=== PATIENT | male | born 1990 | race Caucasian/White ===

== ENCOUNTER 2018-01-19 07:19 | Observation (INO) | payer OTHER ==
[~2018-01-19 07:19] MED LIST: CEFAZOLIN 1 GM INJ
[2018-01-19] MEDS ORDERED: ROPIVACAINE 0.5 % 30 ML VIAL (08:57)
[2018-01-19] MEDS ORDERED: PROPOFOL 20 ML (09:28)
[2018-01-19] MEDS ORDERED: ROCURONIUM 50 MG INJ ×2 (09:28→12:22)
[2018-01-19] MEDS ORDERED: ACETAMINOPHEN 1000MG/100ML IV 100 ML (09:28)
[2018-01-19] MEDS ORDERED: METOCLOPRAMIDE 10 MG INJ (09:29)
[2018-01-19] MEDS ORDERED: ONDANSETRON 4 MG INJ (09:29)
[2018-01-19] MEDS ORDERED: ROPIVACAINE 0.2% 20 ML VIAL (09:30)
[2018-01-19] MEDS ORDERED: MIDAZOLAM 1 MG/ML 2 ML INJ (09:31)
[2018-01-19] MEDS ORDERED: FENTAnyl 50 MCG/ML VIAL (09:38)
[2018-01-19] MEDS ORDERED: POVIDONE IODINE 10% 28.4 GM OINT (09:54)
[2018-01-19] MEDS: POLYMYXIN/BACITRACIN 1L IRRIG (10:12)
[2018-01-19] MEDS ORDERED: LABETALOL HCL 20MG INJ (10:14)
[2018-01-19] MEDS ORDERED: HYDROmorphONE 2 MG/ML SYG (10:19)
[2018-01-19] MEDS ORDERED: DIPHENHYDRAMINE 50 MG INJ IV (11:00)
[2018-01-19] MEDS ORDERED: MEPERIDINE 25 MG INJ IV (11:00)
[2018-01-19] MEDS ORDERED: OXYCODONE/ACETAMINOPHEN (5/325) TAB PO ×2 (11:00)
[2018-01-19] MEDS ORDERED: KETOROLAC 30 MG INJ IV (11:00)
[2018-01-19] MEDS ORDERED: HYDROmorphONE 1 MG/5 ML IV SYRINGE IV ×3 (11:00)
[2018-01-19] MEDS: ROPIVACAINE 0.5 % 30 ML VIAL (12:22)
[2018-01-19] MEDS ORDERED: NEOSTIGMINE 3 MG/3 ML SYRINGE (12:26)
[2018-01-19] MEDS ORDERED: GLYCOPYRROLATE 0.4 MG INJ (12:26)
[2018-01-19] MEDS: ONDANSETRON 4 MG INJ IV (15:36)
[2018-01-19] MEDS: ALBUTEROL 0.083% (NEB) 2.5 MG/3 ML AMP HHN (16:10)
[2018-01-19] MEDS: morphine 2 MG INJ IV (17:47)
[2018-01-20] MEDS ORDERED: ONDANSETRON 4 MG INJ IV ×2 (05:30)
[2018-01-20] MEDS ORDERED: DIPHENHYDRAMINE 25 MG CAP PO (05:30)
[2018-01-20] MEDS ORDERED: NACL 0.9% 3 ML SYG IV (05:30)
[2018-01-20] MEDS ORDERED: CEFAZOLIN 1 GM INJ IV (05:30)
[2018-01-20] MEDS: CEFAZOLIN 2 GM/50 ML (PMX) 50 ML IVPB ×3 (06:08→21:55)
[2018-01-20] MEDS ORDERED: HYDROCODONE/APAP (5/325) TAB PO (09:00)
[2018-01-20] MEDS ORDERED: ALBUTEROL 0.083% (NEB) 2.5 MG/3 ML AMP HHN (09:00)
[2018-01-20] MEDS: HYDROCODONE/APAP (10/325) TAB PO (09:08)
[2018-01-20 09:37] LABS: ADD MAN DIFF? NO
[2018-01-20 09:41] LABS: WHITE BLOOD COUNT 9.8 10^3/ul (4.8-10.8)
[2018-01-20 09:41] LABS: BASOPHILS % 0.4 % (0.0-2.0); EOSINOPHILS # 0.1 10^3/ul (0.0-0.5); EOSINOPHILS % 0.8 % (0.0-7.0); HEMATOCRIT 44.7 % (42.0-52.0); HEMOGLOBIN 14.7 g/dl (14.0-18.0); LYMPHOCYTES # 1.9 10^3/ul (0.8-2.9); MEAN CORPUSCULAR HEMOGLOBIN 27.4 pg (29.0-33.0); MEAN CORPUSCULAR HGB CONC 32.9 g/dl (32.0-37.0); MEAN CORPUSCULAR VOLUME 83.2 fl (82.0-101.0); MONOCYTES % 9.8 % (0.0-11.0); NEUTROPHIL # 6.9 10^3/ul (1.6-7.5); NEUTROPHILS % 69.6 % (39.0-77.0); PLATELET COUNT 242 10^3/UL (140-415); RED BLOOD COUNT 5.37 10^6/ul (4.70-6.10); RED CELL DISTRIBUTION WIDTH 13.6 % (11.5-14.5)
[2018-01-20 10:05] LABS: ALANINE AMINOTRANSFERASE 59 IU/L (13-69); ALBUMIN 3.7 g/dl (3.3-4.9); ALBUMIN/GLOBULIN RATIO 1.23; ALKALINE PHOSPHATASE 60 IU/L (42-121); ANION GAP 12 (8-16); ASPARTATE AMINO TRANSFERASE 24 IU/L (15-46); BILIRUBIN,INDIRECT 0.7 mg/dl (0-1.1); BILIRUBIN,TOTAL 0.7 mg/dl (0.2-1.3); BLOOD UREA NITROGEN 9 mg/dl (7-20); CALCIUM 8.7 mg/dl (8.4-10.2); CARBON DIOXIDE 27 mmol/L (21-31); CHLORIDE 105 mmol/L (97-110); CREATININE 0.72 mg/dl (0.61-1.24); GLUCOSE 103 mg/dl (70-220); MAGNESIUM 1.6 mg/dl (1.7-2.5); POTASSIUM 3.9 mmol/L (3.5-5.1); SODIUM 140 mmol/L (135-144); TOTAL PROTEIN 6.7 g/dl (6.1-8.1)
[2018-01-20] MEDS: OXYCODONE/ACETAMINOPHEN (10/325) TAB PO ×2 (10:09→18:28)
[2018-01-20 11:30] LABS: HEMOGLOBIN A1C 5.5 % (0-5.9)
[2018-01-20] MEDS: OXYCODONE/ACETAMINOPHEN (5/325) TAB PO ×3 (13:26→18:51)
[2018-01-21] MEDS: CEFAZOLIN 2 GM/50 ML (PMX) 50 ML IVPB ×3 (05:39→21:44)
[2018-01-21] MEDS: OXYCODONE/ACETAMINOPHEN (10/325) TAB PO ×2 (08:37→13:36)
[2018-01-21] MEDS: RIVAROXABAN 10 MG TABLET PO (17:40)
[2018-01-21] MEDS: MAGNESIUM OXIDE 400 MG TAB PO (17:40)
[2018-01-22] MEDS: OXYCODONE/ACETAMINOPHEN (10/325) TAB PO ×2 (11:08→18:35)
[2018-01-22] MEDS: RIVAROXABAN 10 MG TABLET PO (18:39)
[2018-01-23 05:41] LABS: ADD MAN DIFF? NO
[2018-01-23 05:43] LABS: BASOPHILS % 0.4 % (0.0-2.0); EOSINOPHILS # 0.5 10^3/ul (0.0-0.5); EOSINOPHILS % 6.7 % (0.0-7.0); HEMATOCRIT 44.9 % (42.0-52.0); HEMOGLOBIN 14.7 g/dl (14.0-18.0); LYMPHOCYTES % 25.9 % (15.0-51.0); MEAN CORPUSCULAR HEMOGLOBIN 27.5 pg (29.0-33.0); MEAN CORPUSCULAR HGB CONC 32.7 g/dl (32.0-37.0); MEAN CORPUSCULAR VOLUME 83.9 fl (82.0-101.0); MEAN PLATELET VOLUME 10.4 fl (7.4-10.4); MONOCYTE # 0.8 10^3/ul (0.3-0.9); MONOCYTES % 10.7 % (0.0-11.0); NEUTROPHIL # 4.2 10^3/ul (1.6-7.5); NEUTROPHILS % 55.2 % (39.0-77.0); PLATELET COUNT 281 10^3/UL (140-415); RED BLOOD COUNT 5.35 10^6/ul (4.70-6.10); RED CELL DISTRIBUTION WIDTH 13.4 % (11.5-14.5)
[2018-01-23 05:43] LABS: WHITE BLOOD COUNT 7.6 10^3/ul (4.8-10.8)
[2018-01-23 06:36] LABS: ALBUMIN 3.8 g/dl (3.3-4.9); ANION GAP 13 (8-16); BLOOD UREA NITROGEN 12 mg/dl (7-20); CALCIUM 8.9 mg/dl (8.4-10.2); CARBON DIOXIDE 29 mmol/L (21-31); CHLORIDE 104 mmol/L (97-110); CREATININE 0.71 mg/dl (0.61-1.24); GLUCOSE 101 mg/dl (70-220); MAGNESIUM 1.9 mg/dl (1.7-2.5); PHOSPHORUS 4.5 mg/dl (2.5-4.9); POTASSIUM 4.1 mmol/L (3.5-5.1); SODIUM 142 mmol/L (135-144)
[2018-01-23] MEDS: ACETAMINOPHEN 325 MG TAB PO (08:55)
[2018-01-23] MEDS: OXYCODONE/ACETAMINOPHEN (10/325) TAB PO (10:41)
== END 2018-01-23 17:15 | disposition home health service (06) ==
LOC: SDS 07:19 → REC 16:09 → MS1 17:20
DX: S83.512A Sprain of anterior cruciate ligament of left knee, initial encounter (principal); R09.02 Hypoxemia; G47.30 Sleep apnea, unspecified; E66.01 Morbid (severe) obesity due to excess calories; Z68.43 Body mass index [BMI] 50.0-59.9, adult; X58.XXXA Exposure to other specified factors, initial encounter; Y99.0 Civilian activity done for income or pay
CPT/HCPCS: 29888; 71045; 80053; 80069; 83036; 83735; 84443; 85025; 94664; 97110; 97116; 97162; 97530